=== PATIENT | male | born 1990 | race Hispanic/Latino ===

== ENCOUNTER 2022-06-16 11:58 | Day surgery (SDC) | payer SELFPAY ==
[2022-06-16] MEDS ORDERED: Midazolam HCl 2 mg/2 ml Vial ONE (15:31)
[2022-06-16] MEDS ORDERED: Bupivacaine/Epinephrine 0.25% 30 ML VIAL ONE (15:58)
[2022-06-16] MEDS ORDERED: Bupivacaine HCl 0.5%/Epinephrine 1:200,000/PF 30 ml Vial ONE (15:58)
[2022-06-16] MEDS ORDERED: Ketorolac Tromethamine 30 MG/ML VIAL ONE (16:01)
[2022-06-16] MEDS ORDERED: HYDROmorphone 0.5 MG/0.5 ML SYRINGE ONE (17:10)
[2022-06-16] MEDS ORDERED: fentaNYL PF 100 MCG/2 ML SYRINGE ONE (17:10)
[2022-06-16] MEDS ORDERED: Sodium Chloride 0.9% 100 ML ONE (17:12)
[2022-06-16] MEDS ORDERED: Piperacillin/Tazobactam 3.375 GM VIAL ONE (17:12)
[2022-06-16] MEDS ORDERED: Dexamethasone 20 MG/5 ML VIAL ONE (17:22)
[2022-06-16] MEDS ORDERED: Rocuronium Bromide 10 MG/ML (10ML VIAL) ONE (17:22)
[2022-06-16] MEDS ORDERED: Succinylcholine Chloride 100 MG/5 ML SYRINGE FS ONE (17:22)
[2022-06-16] MEDS ORDERED: Glycopyrrolate 0.2 MG/ML 5 ML SYRINGE ONE (17:22)
[2022-06-16] MEDS ORDERED: PROPOFOL 200 MG/20 ML VIAL ONE (17:22)
[2022-06-16] MEDS ORDERED: Lidocaine 1% PF 5 ML VIAL ONE (17:22)
[2022-06-16] MEDS ORDERED: NEOSTIGMINE 3 MG/3 ML SYR 3 MG/3 ML SYRINGE ONE (17:22)
[2022-06-16] MEDS ORDERED: HYDROcodone/Acetaminophen 5/325 mg Tablet ONE (19:08)
== END 2022-06-16 19:35 | disposition home or self-care (01) ==
LOC: SDC 11:58
PROVIDERS: ATTEND Specialist
PROC: 0DTJ4ZZ Resection of Appendix, Percutaneous Endoscopic Approach (ICD-10-PCS; principal; 2022-06-16)
DX: K35.80 Unspecified acute appendicitis (principal); K63.89 Other specified diseases of intestine
CPT/HCPCS: 88304; A4649; C1713; J1100; J1170; J1885; J2250; J2543; J2704; J3490